=== PATIENT | male | born 1950 | race Caucasian/White ===

== ENCOUNTER 2022-12-26 17:43 | Emergency (ER) | payer OTHER ==
[2022-12-26 17:47] VITALS: RESP 18; TEMP 97.8; BMI 28.7
[2022-12-26] MEDS ORDERED: SODIUM CHLORIDE 0.9% 500 ML INFUS.BAG IV ONE (19:03)
[2022-12-26] MEDS ORDERED: ONDANSETRON 4 MG/2 ML VIAL IVPUSH ONE (19:03)
[2022-12-26] MEDS ORDERED: ONDANSETRON 4 MG/2 ML VIAL ONE (19:15)
[2022-12-26 19:23] LABS: BASO % 0.9 % (0-2.0); EOS % 1.9 % (0-4.5); LYMPH % 22.8 % (8-40); MCH 30.3 pg (25.7-33.7); MCHC 34.1 g/dl (32.0-35.9); MEAN CELL VOLUME 88.8 fl (80-96); MEAN PLT VOLUME 8.4 fl (7.5-11.1); MONO % 8.3 % (3.8-10.2); NEUT % 66.1 % (42.8-82.8); PLATELET COUNT 227 10^3/uL (134-434); RBC 4.96 M/mm3 (4.00-5.60); RDW 12.9 % (11.9-15.9); WHITE BLOOD COUNT 8.3 K/mm3 (4.0-10.0)
[2022-12-26 19:39] LABS: POTASSIUM 4.3 mmol/L (3.5-5.1)
[2022-12-26 19:42] LABS: ALBUMIN 3.6 g/dl (3.4-5.0); BLOOD UREA NITROGEN 11.1 mg/dL (7-18); CALCIUM 8.5 mg/dL (8.5-10.1); MAGNESIUM 2.1 mg/dL (1.8-2.4)
[2022-12-26 19:46] LABS: BILIRUBIN,TOTAL 0.6 mg/dL (0.2-1)
[2022-12-26 19:47] LABS: TOT PROT 7.2 g/dl (6.4-8.2)
[2022-12-26 22:10] LABS: EPI CELLS 1 /uL (0-25.1); HYALINE CASTS 0 /uL (0-3.1); URINE APPEARANCE CLEAR; URINE BACTERIA 0 /uL (0-1359); URINE BILIRUBIN NEGATIVE (NEGATIVE); URINE COLOR YELLOW; URINE GLUCOSE (UA) NEGATIVE (NEGATIVE); URINE KETONE NEGATIVE (NEGATIVE); URINE LEUK ESTERASE NEGATIVE (NEGATIVE); URINE NITRITE NEGATIVE (NEGATIVE); URINE PROTEIN NEGATIVE (NEGATIVE); URINE RBC 147 /uL (0-23.9); URINE UROBILINOGEN 0.2 mg/dL (0.2-1.0); URINE WBC 1 /uL (0-25.8)
[2022-12-26 23:14] VITALS: BP 139/71; PULSE 68
[2022-12-26] MEDS ORDERED: ONDANSETRON *ODT* 4 MG TABLET SL ONE (23:23)
[2022-12-26] MEDS ORDERED: ONDANSETRON *ODT* 4 MG TABLET ONE (23:23)
== END 2022-12-26 23:32 | disposition home or self-care (01) ==
LOC: JER 17:43
PROC: 3E033GC Introduction of Other Therapeutic Substance into Peripheral Vein, Percutaneous Approach (ICD-10-PCS; principal; 2022-12-26)
DX: R11.2 Nausea with vomiting, unspecified (principal); R42 Dizziness and giddiness; R51.9 Headache, unspecified; Z20.822 Contact with and (suspected) exposure to COVID-19
CPT/HCPCS: 0241U-QW; 36415; 70450-TC; 74177-TC; 80053; 81003; 83605; 83735; 84484; 85025; 93005; 93010; 99285-25; Q9967

== ENCOUNTER 2024-02-05 14:28 | Inpatient (IN) | payer OTHER ==
[2024-02-05 14:36] VITALS: BMI 30.9
[2024-02-05 15:59] LABS: BASO % 0.3 % (0-2.0); EOS % 0.3 % (0-4.5); HEMATOCRIT 39.6 % (35.4-49); HEMOGLOBIN 13.4 GM/dL (11.7-16.9); LYMPH % 6.8 % (8-40); MCH 30.4 pg (25.7-33.7); MCHC 33.7 g/dl (32.0-35.9); MEAN CELL VOLUME 90.1 fl (80-96); MEAN PLT VOLUME 8.7 fl (7.5-11.1); MONO % 10.1 % (3.8-10.2); NEUT % 82.5 % (42.8-82.8); PLATELET COUNT 158 10^3/uL (134-434); RDW 13.6 % (11.9-15.9); WHITE BLOOD COUNT 9.3 K/mm3 (4.0-10.0)
[2024-02-05 16:02] LABS: VENOUS BASE EXCESS 0.7 mmol/L (-2-2); VENOUS O2 SATURATION 17.1 % (70-80); VENOUS PCO2 41.9 mmHg (38-52); VENOUS PH 7.404 (7.310-7.410)
[2024-02-05 16:06] LABS: INR 1.04 (0.83-1.09); PROTHROMBIN TIME (PATIENT) 11.9 SEC (9.7-13.0)
[2024-02-05] MEDS ORDERED: ACETAMINOPHEN INJECTION 100 ML ONE (16:16)
[2024-02-05 16:20] LABS: POTASSIUM 4.3 mmol/L (3.5-5.1)
[2024-02-05 16:21] LABS: CALCIUM 8.7 mg/dL (8.5-10.1)
[2024-02-05 16:22] LABS: ALBUMIN 3.4 g/dl (3.4-5.0)
[2024-02-05 16:24] LABS: BLOOD UREA NITROGEN 16.3 mg/dL (7-18)
[2024-02-05 16:25] LABS: CREATININE 1.1 mg/dL (0.55-1.3)
[2024-02-05 16:27] LABS: TOT PROT 6.8 g/dl (6.4-8.2)
[2024-02-05 16:28] LABS: BILIRUBIN,TOTAL 0.6 mg/dL (0.2-1)
[2024-02-05] MEDS: ACETAMINOPHEN 1000 MG/100 ML BAG IVPB ONE (16:32)
[2024-02-05] MEDS: SODIUM CHLORIDE 1,000 ML IV SCH ×2 (16:42)
[2024-02-05 19:58] LABS: EPI CELLS 9 /uL (0-25.1); HYALINE CASTS 1 /uL (0-3.1); PH,URINE 5.5 (5.0-8.0); URINE APPEARANCE CLEAR; URINE BACTERIA 2 /uL (0-1359); URINE BILIRUBIN NEGATIVE (NEGATIVE); URINE COLOR YELLOW; URINE GLUCOSE (UA) NEGATIVE (NEGATIVE); URINE KETONE 1+ (NEGATIVE); URINE LEUK ESTERASE NEGATIVE (NEGATIVE); URINE NITRITE NEGATIVE (NEGATIVE); URINE PROTEIN TRACE (NEGATIVE); URINE RBC 72 /uL (0-23.9); URINE WBC 10 /uL (0-25.8)
[2024-02-05] MEDS ORDERED: ACETAMINOPHEN 325 MG TABLET (FP) PO PRN (22:00)
[2024-02-06] MEDS: DEXAMETHASONE SOD PHOSPHATE 4 MG/1 ML VIAL IVPUSH ONE (02:21)
[2024-02-06] MEDS: guaiFENesin 200 MG/10 ML 10 ML UNIT-DOSE CUPS PO PRN (02:22)
[2024-02-06] MEDS: REMDESIVIR 200 MG in SODIUM CHLORIDE 250 ML IVPB ONE (02:33)
[2024-02-06 10:06] LABS: BASO % 0.2 % (0-2.0); HEMATOCRIT 38.2 % (35.4-49); HEMOGLOBIN 12.4 GM/dL (11.7-16.9); LYMPH % 7.3 % (8-40); MCH 29.9 pg (25.7-33.7); MCHC 32.5 g/dl (32.0-35.9); MEAN PLT VOLUME 9.1 fl (7.5-11.1); MONO % 1.8 % (3.8-10.2); NEUT % 90.7 % (42.8-82.8); PLATELET COUNT 157 10^3/uL (134-434); RBC 4.15 M/mm3 (4.00-5.60); RDW 13.1 % (11.9-15.9); WHITE BLOOD COUNT 7.9 K/mm3 (4.0-10.0)
[2024-02-06 10:24] LABS: POTASSIUM 4.4 mmol/L (3.5-5.1)
[2024-02-06 10:33] LABS: BLOOD UREA NITROGEN 14.6 mg/dL (7-18); CALCIUM 8.2 mg/dL (8.5-10.1)
[2024-02-06 10:36] LABS: CREATININE 1.2 mg/dL (0.55-1.3)
[2024-02-06] MEDS ORDERED: REMDESIVIR 100 MG in SODIUM CHLORIDE 250 ML IVPB SCH (11:15)
[2024-02-06] MEDS: HEPARIN NA (PORCINE) 5,000 UNITS/ML 1ML VIAL SQ SCH (14:35)
[2024-02-06 15:29] VITALS: RESP 18
[2024-02-07] MEDS: REMDESIVIR 100 MG in SODIUM CHLORIDE 250 ML IVPB SCH (09:56)
[2024-02-07] MEDS ORDERED: DEXAMETHASONE SOD PHOSPHATE 10 MG/1 ML VIAL IVPUSH SCH (10:00)
[2024-02-07] MEDS ORDERED: REMDESIVIR 200 MG in SODIUM CHLORIDE 250 ML IVPB ONE (11:00)
[2024-02-08 06:13] VITALS: BP 129/71; PULSE 81; TEMP 99
[2024-02-08] MEDS ORDERED: INSULIN ASPART SLIDING SCALE (NOVOLOG) 1 VIAL SQ ONE (09:34)
== END 2024-02-08 13:46 | disposition home or self-care (01) | DRG 177 ==
LOC: JER 14:28 → JERBED 20:27 → J8W 22:32 → OBSVTOIN 02-06 12:54
PROVIDERS: ADMIT Internal Medicine; ATTEND Internal Medicine
PROC: XW033E5 Introduction of Remdesivir Anti-infective into Peripheral Vein, Percutaneous Approach, New Technology Group 5 (ICD-10-PCS; principal; 2024-02-06)
DX: U07.1 COVID-19 (principal); G93.41 Metabolic encephalopathy; R47.01 Aphasia; I10 Essential (primary) hypertension; Z85.038 Personal history of other malignant neoplasm of large intestine
CPT/HCPCS: 0241U-QW; 36415; 70450-TC; 71045-TC-FY; 80048; 80053; 80061; 81003; 82550; 82728; 82803; 82962; 83036; 83605; 83615; 83735; 84484; 85025; 85379; 85610; 85730; 86140; 86850; 86900; 86901; 87040; 93005; 93010; 93880-TC; 97116-GP; 97161-GP; 99291; G0378; J0131; J0248; J1644